=== PATIENT | female | born 1940 | race Caucasian/White ===

== ENCOUNTER 2021-02-19 01:15 | Observation (INO) ==
[2021-02-19] MEDS ORDERED: Furosemide 40 mg/4 ml IV VIAL IV SLOW PU ONE (01:35)
[2021-02-19 03:13] LABS: Hematocrit 27 % (35-47); Hemoglobin 8.4 g/dL (12.0-16.0); Mean Corpuscular HGB Conc 32 g/dL (31-36); Mean Corpuscular Hemoglobin 23 pg (27-31); Mean Corpuscular Volume 73 fL (80-97); Mean Platelet Volume 7.1 fL (7.4-10.4); Platelet Count 366 10^3/uL (150-450); Red Blood Count 3.64 10^6 /uL (3.70-4.87); Red Cell Distribution Width 15 % (10-15); White Blood Count 11.3 10^3/uL (3.5-10.8)
[2021-02-19 03:29] LABS: Anion Gap 7 mmol/L (2-11); Blood Urea Nitrogen 25 mg/dL (6-24); CO2 Carbon Dioxide 26 mmol/L (22-32); Calcium 9.2 mg/dL (8.6-10.3); Chloride 107 mmol/L (101-111); EGFR African American 65.5 (>60); EGFR Non-African American 54.1 (>60); Glucose 108 mg/dL (70-100); Magnesium 1.9 mg/dL (1.9-2.7); Potassium 3.8 mmol/L (3.5-5.0); Sodium 140 mmol/L (135-145)
[2021-02-19 03:35] LABS: Troponin I 0.04 ng/mL (<0.03)
[2021-02-19] MEDS ORDERED: Polyethylene Glycol 3350 17 GM PACKET PO PRN (05:48)
[2021-02-19] MEDS ORDERED: Senna TAB 8.6 mg TAB PO PRN (05:48)
[2021-02-19] MEDS: Furosemide 40 mg/4 ml IV VIAL IV SCH ×2 (09:11→17:18)
[2021-02-19] MEDS: Enoxaparin 40 MG/0.4 ML SYR SUBCUT SCH (09:12)
[2021-02-19 16:58] LABS: Troponin I 0.05 ng/mL (<0.03)
[2021-02-20 07:04] LABS: Troponin I 0.04 ng/mL (<0.03)
[2021-02-20 08:56] LABS: ABS Basophils 0.1 10^3/ul (0-0.2); ABS Eosinophils 0.3 10^3/ul (0-0.6); ABS Lymphocytes 2.3 10^3/ul (1.0-4.8); ABS Monocytes 0.6 10^3/ul (0-0.8); ABS Neutrophils 6.8 10^3/ul (1.5-7.7); Eosinophil % 2.6 %; Hematocrit 32 % (35-47); Hemoglobin 10.4 g/dL (12.0-16.0); Lymphocyte % 22.8 %; Mean Corpuscular HGB Conc 33 g/dL (31-36); Mean Corpuscular Hemoglobin 24 pg (27-31); Mean Corpuscular Volume 73 fL (80-97); Mean Platelet Volume 7.2 fL (7.4-10.4); Nucleated Red Blood Cells % 0.1; Platelet Count 461 10^3/uL (150-450); Red Blood Count 4.39 10^6 /uL (3.70-4.87); Red Cell Distribution Width 15 % (10-15)
[2021-02-20 09:02] LABS: Calcium 9.7 mg/dL (8.6-10.3); EGFR African American 42.5 (>60); EGFR Non-African American 35.1 (>60); Potassium 4.2 mmol/L (3.5-5.0)
[2021-02-20 09:28] LABS: Microcytosis 1+; Polychromasia 1+
[2021-02-20] MEDS: Furosemide 40 mg/4 ml IV VIAL IV SCH (09:41)
[2021-02-20] MEDS: Enoxaparin 40 MG/0.4 ML SYR SUBCUT SCH (09:41)
[2021-02-20 16:37] VITALS: BP 129/55
== END 2021-02-20 17:25 | disposition home or self-care (01) ==
LOC: ED 01:15 → MEDTELE 01:15 → ED 07:03
PROVIDERS: ADMIT Hospitalist; ATTEND Hospitalist

== ENCOUNTER 2022-03-07 00:10 | Inpatient (IN) ==
[2022-03-07] MEDS ORDERED: Albuterol HFA INHALER 8 gm MDI INH PRN (01:04)
[2022-03-07] MEDS ORDERED: Furosemide 40 mg/4 ml IV VIAL IV SLOW PU ONE (01:06)
[2022-03-07 01:28] LABS: Hematocrit 32 % (35-47); Hemoglobin 8.6 g/dL (12.0-16.0); Mean Corpuscular HGB Conc 27 g/dL (31-36); Mean Corpuscular Hemoglobin 23 pg (27-31); Mean Corpuscular Volume 82 fL (80-97); Platelet Count 535 10^3/uL (150-450); Red Blood Count 3.84 10^6 /uL (3.70-4.87); Red Cell Distribution Width 17 % (10-15); White Blood Count 22.3 10^3/uL (3.5-10.8)
[2022-03-07 01:42] LABS: Albumin 2.2 g/dL (3.2-5.2); Calcium 7.7 mg/dL (8.6-10.3); Sodium 137 mmol/L (135-145)
[2022-03-07 01:48] LABS: ALT 28 U/L (7-52); Albumin/Globulin Ratio 1.2 (1-3); Alkaline Phosphatase 779 U/L (35-149); Blood Urea Nitrogen 52 mg/dL (6-24); Globulin 1.9 g/dL (2-4); Glucose 92 mg/dL (70-100); Total Protein 4.1 g/dL (6.4-8.9); eGFR CKD-EPI 13.7 (>60)
[2022-03-07 01:51] LABS: Chloride 112 mmol/L (101-111)
[2022-03-07 01:53] LABS: Anion Gap 14 mmol/L (2-11); CO2 Carbon Dioxide 11 mmol/L (22-32)
[2022-03-07 03:00] LABS: Potassium Redraw 4.5 mmol/L (3.5-5.0)
[2022-03-07 03:14] LABS: Acanthocytes 1+; Anisocytosis 1+; Polychromasia 1+
[2022-03-07 03:15] LABS: Target Cells 1+; Toxic Granulation 1+
[2022-03-07 03:19] LABS: Dohle Bodies Present
[2022-03-07 03:24] LABS: ABS Basophils 0.1 10^3/ul (0-0.2); ABS Eosinophils 0.1 10^3/ul (0-0.6); ABS Lymphocytes 1.4 10^3/ul (1.0-4.8); ABS Monocytes 1.2 10^3/ul (0-0.8); ABS Neutrophils 19.6 10^3/ul (1.5-7.7); ABS Nucleated RBC 0.4 10^3/ul; Eosinophil % 0.4 %; Lymphocyte % 6.5 %
[2022-03-07 03:53] LABS: RBC Morphology Normal (Normal)
[2022-03-07] MEDS: Ondansetron 4 mg VIAL 2 MG/ML 2 ml VIAL IV PRN ×2 (08:26→13:08)
[2022-03-07] MEDS: DULoxetine DR 60 mg CAP PO SCH (09:29)
[2022-03-07 11:44] LABS: Calcium 8.2 mg/dL (8.6-10.3); Potassium 4.8 mmol/L (3.5-5.0); eGFR CKD-EPI 12.4 (>60)
[2022-03-07] MEDS ORDERED: Furosemide 100 mg/10 ml IV VIAL IV ONE (15:00)
[2022-03-07 17:29] LABS: Urine Osmo 331 mOsm/kg (150-1150)
[2022-03-07 17:38] LABS: Urine Creatinine Concentration 109.67 mg/dL
[2022-03-07 17:46] LABS: Urine Appearance Clear; Urine Bilirubin 1+ (Small) (Negative); Urine Blood Negative (Negative); Urine Color Yellow; Urine Glucose Negative (Negative); Urine Ketones Negative (Negative); Urine Nitrite Negative (Negative); Urine Protein 2+ (100 mg/dL) (Negative); Urine Specific Gravity 1.025 (1.005-1.030); Urine Urobilinogen 0.2 (Negative) (Negative)
[2022-03-07 17:53] LABS: Urine Bacteria 1+ (Absent); Urine Red Blood Cell 1+(3-5/hpf) (Absent); Urine Squamous Epithelial Cell Present (Absent); Urine White Blood Cell 1+(6-10/hpf) (Absent)
[2022-03-07 19:01] LABS: Osmolality Serum 304 mOsm/kg (275-295)
[2022-03-08] MEDS: Ondansetron 4 mg VIAL 2 MG/ML 2 ml VIAL IV PRN ×4 (01:02→20:23)
[2022-03-08 01:39] LABS: Calcium 8.2 mg/dL (8.6-10.3); Magnesium 2.1 mg/dL (1.9-2.7); Potassium 4.9 mmol/L (3.5-5.0)
[2022-03-08 01:45] LABS: eGFR CKD-EPI 10.6 (>60)
[2022-03-08] MEDS ORDERED: Bumetanide IV 0.25 MG/ML 4 ml VIAL (1 mg) SLOW PUSH ONE (02:53)
[2022-03-08] MEDS ORDERED: Lactated Ringers 1000 ml BAG 1,000 ML IV SCH (08:00)
[2022-03-08] MEDS: DULoxetine DR 60 mg CAP PO SCH (08:19)
[2022-03-08 13:47] LABS: Calcium 7.9 mg/dL (8.6-10.3); Potassium 4.8 mmol/L (3.5-5.0); eGFR CKD-EPI 9.9 (>60)
[2022-03-08 14:44] LABS: Hematocrit 29 % (35-47); Hemoglobin 8.3 g/dL (12.0-16.0); Mean Corpuscular HGB Conc 29 g/dL (31-36); Mean Corpuscular Hemoglobin 23 pg (27-31); Mean Corpuscular Volume 77 fL (80-97); Mean Platelet Volume 7.8 fL (7.4-10.4); Platelet Count 707 10^3/uL (150-450); Red Cell Distribution Width 16 % (10-15); White Blood Count 28.7 10^3/uL (3.5-10.8)
[2022-03-08] MEDS: Lactated Ringers 1000 ml BAG 1,000 ML IV SCH (15:41)
[2022-03-08 17:02] LABS: Albumin 2.1 g/dL (3.2-5.2); Albumin/Globulin Ratio 1.3 (1-3); Direct Bilirubin 0.2 mg/dL (0.03-0.18); Globulin 1.6 g/dL (2-4); Indirect Bilirubin 0.3 mg/dL (0.3-1.0); Total Bilirubin 0.5 mg/dL (0.2-1.0); Total Protein 3.7 g/dL (6.4-8.9)
[2022-03-08 21:21] LABS: Toxic Granulation 1+
[2022-03-08 21:22] LABS: Burr Cells 1+
[2022-03-08 21:23] LABS: ABS Basophils 0.2 10^3/ul (0-0.2); ABS Monocytes 0.1 10^3/ul (0-0.8); ABS Neutrophils 27.3 10^3/ul (1.5-7.7); ABS Nucleated RBC 0.5 10^3/ul; Anisocytosis 1+; Eosinophil % 0.2 %; Lymphocyte % 3.7 %; Microcytosis 1+; Nucleated Red Blood Cells % 1.8; Polychromasia 1+
[2022-03-09] MEDS: Ondansetron 4 mg VIAL 2 MG/ML 2 ml VIAL IV PRN (05:34)
[2022-03-09] MEDS: Lactated Ringers 1000 ml BAG 1,000 ML IV SCH (05:35)
[2022-03-09 06:49] LABS: Hematocrit 28 % (35-47); Hemoglobin 8.7 g/dL (12.0-16.0); Mean Corpuscular HGB Conc 31 g/dL (31-36); Mean Corpuscular Hemoglobin 23 pg (27-31); Mean Corpuscular Volume 73 fL (80-97); Mean Platelet Volume 6.9 fL (7.4-10.4); Platelet Count 737 10^3/uL (150-450); Red Blood Count 3.85 10^6 /uL (3.70-4.87); Red Cell Distribution Width 16 % (10-15); White Blood Count 29.1 10^3/uL (3.5-10.8)
[2022-03-09 07:01] LABS: Albumin 2.1 g/dL (3.2-5.2); Albumin/Globulin Ratio 1.2 (1-3); Calcium 8.1 mg/dL (8.6-10.3); Globulin 1.8 g/dL (2-4); Magnesium 2.1 mg/dL (1.9-2.7); Phosphorus 6.7 mg/dL (2.5-5.0); Potassium 4.4 mmol/L (3.5-5.0); Total Bilirubin 0.5 mg/dL (0.2-1.0); Total Protein 3.9 g/dL (6.4-8.9); eGFR CKD-EPI 9.1 (>60)
[2022-03-09 07:23] LABS: Anisocytosis 1+; Microcytosis 2+
[2022-03-09 07:26] LABS: ABS Eosinophils 0.1 10^3/ul (0-0.6); ABS Lymphocytes 2.5 10^3/ul (1.0-4.8); ABS Monocytes 1.4 10^3/ul (0-0.8); ABS Neutrophils 25.2 10^3/ul (1.5-7.7); ABS Nucleated RBC 0.3 10^3/ul; Eosinophil % 0.2 %; Lymphocyte % 8.5 %; Nucleated Red Blood Cells % 1.1; Polychromasia 1+
[2022-03-09] MEDS: DULoxetine DR 60 mg CAP PO SCH (08:46)
[2022-03-09] MEDS: Heparin 5000 UNITS/ML 1 mL VIAL SUBCUT SCH (21:34)
[2022-03-10 05:44] LABS: Hematocrit 30 % (35-47); Hemoglobin 8.8 g/dL (12.0-16.0); Mean Corpuscular HGB Conc 30 g/dL (31-36); Mean Corpuscular Hemoglobin 22 pg (27-31); Mean Corpuscular Volume 73 fL (80-97); Mean Platelet Volume 7.1 fL (7.4-10.4); Platelet Count 709 10^3/uL (150-450); Red Blood Count 4.05 10^6 /uL (3.70-4.87); Red Cell Distribution Width 16 % (10-15)
[2022-03-10 05:45] LABS: Albumin 2.1 g/dL (3.2-5.2); Albumin/Globulin Ratio 1.2 (1-3); Globulin 1.7 g/dL (2-4); Total Bilirubin 0.5 mg/dL (0.2-1.0); Total Protein 3.8 g/dL (6.4-8.9); eGFR CKD-EPI 8.6 (>60)
[2022-03-10 06:21] LABS: Anisocytosis 1+; Hypochromasia 1+; Microcytosis 2+; Polychromasia 1+
[2022-03-10 06:22] LABS: ABS Basophils 0.1 10^3/ul (0-0.2); ABS Eosinophils 0.1 10^3/ul (0-0.6); ABS Lymphocytes 2.5 10^3/ul (1.0-4.8); ABS Monocytes 1.2 10^3/ul (0-0.8); ABS Neutrophils 26.4 10^3/ul (1.5-7.7); ABS Nucleated RBC 0.9 10^3/ul; Eosinophil % 0.2 %; Lymphocyte % 8.4 %
[2022-03-10 06:31] LABS: White Blood Count 27.2 10^3/uL (3.5-10.8)
[2022-03-10] MEDS: Heparin 5000 UNITS/ML 1 mL VIAL SUBCUT SCH ×2 (08:12→20:03)
[2022-03-10] MEDS: DULoxetine DR 60 mg CAP PO SCH (08:12)
[2022-03-10] MEDS ORDERED: Bumetanide IV 0.25 MG/ML 4 ml VIAL (1 mg) SLOW PUSH ONE ×2 (09:00→16:30)
[2022-03-10] MEDS ORDERED: Albumin Human 5% 12.5 GM/250 ML BTL IV ONE (16:30)
[2022-03-11 05:52] LABS: ABS Lymphocytes 2.9 10^3/ul (1.0-4.8); ABS Monocytes 1.2 10^3/ul (0-0.8); ABS Neutrophils 28.6 10^3/ul (1.5-7.7); ABS Nucleated RBC 0.2 10^3/ul; Eosinophil % 0.1 %; Hematocrit 27 % (35-47); Hemoglobin 8.1 g/dL (12.0-16.0); Lymphocyte % 8.9 %; Mean Corpuscular HGB Conc 30 g/dL (31-36); Mean Corpuscular Hemoglobin 23 pg (27-31); Mean Corpuscular Volume 74 fL (80-97); Mean Platelet Volume 6.8 fL (7.4-10.4); Nucleated Red Blood Cells % 0.7; Platelet Count 593 10^3/uL (150-450); Red Blood Count 3.61 10^6 /uL (3.70-4.87); Red Cell Distribution Width 16 % (10-15); White Blood Count 32.7 10^3/uL (3.5-10.8)
[2022-03-11 06:16] LABS: Calcium 8.1 mg/dL (8.6-10.3); Potassium 4.1 mmol/L (3.5-5.0); eGFR CKD-EPI 8.2 (>60)
[2022-03-11] MEDS ORDERED: NS 0.9% 1000 ml BAG 1,000 ML IV ONE (07:55)
[2022-03-11] MEDS ORDERED: Albumin Human 5% 12.5 GM/250 ML BTL IV ONE (08:03)
[2022-03-11] MEDS: DULoxetine DR 60 mg CAP PO SCH (09:11)
[2022-03-11] MEDS: Heparin 5000 UNITS/ML 1 mL VIAL SUBCUT SCH ×2 (09:11→20:37)
[2022-03-11] MEDS ORDERED: Vancomycin- *ENEMA* PR 500MG PR ONE (11:31)
[2022-03-11 12:12] LABS: C Reactive Protein 51.65 mg/L (<8.01)
[2022-03-11 13:08] LABS: Complement C3 70 mg/dL (75 - 175)
[2022-03-11 13:54] LABS: Kappa Free Light Chain 7.33 mg/dL; Lambda Free Light Chain, S 4.99 mg/dL
[2022-03-11 14:04] LABS: Albumin 2.3 g/dL (3.2-5.2)
[2022-03-11 14:36] LABS: INR 1.59 (0.89-1.11)
[2022-03-11 15:49] LABS: Body Fluid Appearance Clear; Body Fluid Color Yellow; Body Fluid Source Peritonial Fluid
[2022-03-11 16:12] LABS: C-ANCA Negative (Negative); P-ANCA Negative (Negative)
[2022-03-11] MEDS: metroNIDAZOLE IV 500 MG/100ML 500 MG/100 ML BAG IVPB SCH (17:23)
[2022-03-11 19:56] LABS: Body Fluid WBC 749 /mcL
[2022-03-11 23:07] LABS: Body Fluid Mono 25 %; Body Fluid Other Cells 1; Body Fluid Total Cells Counted 200
[2022-03-12] MEDS: metroNIDAZOLE IV 500 MG/100ML 500 MG/100 ML BAG IVPB SCH ×3 (01:46→18:11)
[2022-03-12 06:19] LABS: Hematocrit 27 % (35-47); Hemoglobin 7.9 g/dL (12.0-16.0); Mean Corpuscular HGB Conc 29 g/dL (31-36); Mean Corpuscular Hemoglobin 22 pg (27-31); Mean Corpuscular Volume 75 fL (80-97); Mean Platelet Volume 7.1 fL (7.4-10.4); Platelet Count 541 10^3/uL (150-450); Red Blood Count 3.57 10^6 /uL (3.70-4.87); Red Cell Distribution Width 16 % (10-15); White Blood Count 37.1 10^3/uL (3.5-10.8)
[2022-03-12 06:23] LABS: Albumin 2.4 g/dL (3.2-5.2); Total Bilirubin 0.5 mg/dL (0.2-1.0)
[2022-03-12 06:29] LABS: Albumin/Globulin Ratio 1.5 (1-3); Globulin 1.6 g/dL (2-4); eGFR CKD-EPI 8.7 (>60)
[2022-03-12 08:23] LABS: ABS Basophils 0.2 10^3/ul (0-0.2); ABS Eosinophils 0.1 10^3/ul (0-0.6); ABS Lymphocytes 2.1 10^3/ul (1.0-4.8); ABS Neutrophils 33.7 10^3/ul (1.5-7.7); ABS Nucleated RBC 0.3 10^3/ul; Anisocytosis 1+; Eosinophil % 0.3 %; Lymphocyte % 5.6 %; Microcytosis 1+; Nucleated Red Blood Cells % 0.8; Polychromasia 1+
[2022-03-12 08:50] LABS: Albumin 1.8 g/dL (3.4-4.7); Albumin/Globulin Ratio 0.89; Gamma Globulin 0.4 g/dL (0.6-1.6); Total Protein(PEP) 3.8 g/dL (6.3 - 7.9)
[2022-03-12] MEDS: Sodium Bicarb 650 mg (ANTACID) TAB PO SCH ×2 (09:26→12:54)
[2022-03-12] MEDS ORDERED: Albumin Human 5% 12.5 GM/250 ML BTL IV ONE (09:26)
[2022-03-12] MEDS: DULoxetine DR 60 mg CAP PO SCH (09:26)
[2022-03-12] MEDS: Heparin 5000 UNITS/ML 1 mL VIAL SUBCUT SCH ×2 (09:35→21:36)
[2022-03-12 09:52] LABS: Magnesium 2.1 mg/dL (1.9-2.7)
[2022-03-12 09:58] LABS: Phosphorus 7.1 mg/dL (2.5-5.0)
[2022-03-12] MEDS ORDERED: cefTRIAXone 2 gm/50 mL D5W 2 GM/50 ML BAG IV SCH (10:00)
[2022-03-12 10:20] LABS: Venous Bicarbonate HCO3 14.4 mmol/L (24-28)
[2022-03-12 11:24] LABS: HIV 4th Generation Nonreactive (Nonreactive)
[2022-03-12 12:58] LABS: ALP Liver 1% 51.4 % (27.8-76.3); ALP Liver 2 605.7 IU/L (0.0-5.8); ALP Liver 2% 44.6 % (0.0-8.0); ALP Placental Not Present; Alkaline Phosphate 1358 U/L (35 - 104)
[2022-03-12 13:57] LABS: Calcium 7.9 mg/dL (8.6-10.3); Potassium 3.7 mmol/L (3.5-5.0); eGFR CKD-EPI 8.8 (>60)
[2022-03-12 15:02] LABS: Venous Bicarbonate HCO3 15.3 mmol/L (24-28)
[2022-03-12] MEDS ORDERED: Sodium Bicarbonate 8.4% VIAL 1 MEQ/ML 50 ml VIAL (50 meq) IV ONE (15:40)
[2022-03-12] MEDS ORDERED: Sodium Bicarb 650 mg (ANTACID) TAB PO SCH (16:00)
[2022-03-12] MEDS ORDERED: HYDROmorphone 0.5 MG/0.5 ML SYRINGE ONE (17:33)
[2022-03-12] MEDS: HYDROmorphone 0.5 MG/0.5 ML SYRINGE IV SLOW PU PRN ×2 (17:36→23:11)
[2022-03-12 20:19] LABS: PCO2 Arterial 35 mmHg (35-45); PO2 Arterial 91 mmHg (80-100)
[2022-03-12] MEDS ORDERED: Metoprolol Tartrate 5 mg VIAL 5 ml VIAL (1 mg/ml) IV ONE ×2 (20:47→23:50)
[2022-03-12] MEDS ORDERED: Pantoprazole VIAL 40 MG VIAL IV SCH (21:00)
[2022-03-12] MEDS ORDERED: Sodium Bicarb 8.4% Vial 50 ML 150 MEQ in D5W 1000 ml BAG 850 ML IV SCH ×2 (21:00→21:30)
[2022-03-12] MEDS ORDERED: Cefepime 1 GM in Dextrose 1 GM/50 ML BAG IV SCH (21:00)
[2022-03-12 21:13] LABS: Hematocrit 31 % (35-47); Hemoglobin 9.4 g/dL (12.0-16.0); Mean Corpuscular HGB Conc 31 g/dL (31-36); Mean Corpuscular Hemoglobin 23 pg (27-31); Mean Corpuscular Volume 74 fL (80-97); Mean Platelet Volume 7.1 fL (7.4-10.4); Platelet Count 669 10^3/uL (150-450); Red Blood Count 4.17 10^6 /uL (3.70-4.87); Red Cell Distribution Width 16 % (10-15); White Blood Count 35.6 10^3/uL (3.5-10.8)
[2022-03-12 21:54] LABS: Albumin 2.5 g/dL (3.2-5.2); Albumin/Globulin Ratio 1.6 (1-3); Calcium 7.8 mg/dL (8.6-10.3); Globulin 1.6 g/dL (2-4); Total Bilirubin 0.5 mg/dL (0.2-1.0); Total Protein 4.1 g/dL (6.4-8.9); eGFR CKD-EPI 8.9 (>60)
[2022-03-12 21:59] LABS: ABS Lymphocytes 0.9 10^3/ul (1.0-4.8); ABS Monocytes 0.2 10^3/ul (0-0.8); ABS Neutrophils 34.4 10^3/ul (1.5-7.7); ABS Nucleated RBC 0.8 10^3/ul; Lymphocyte % 2.5 %; Nucleated Red Blood Cells % 2.2
[2022-03-13] MEDS: Vancomycin- *ENEMA* PR 500MG PR SCH ×2 (00:41→05:00)
[2022-03-13] MEDS ORDERED: Morphine 2 MG/ML SYRINGE IV ONE (00:56)
[2022-03-13] MEDS ORDERED: Metoprolol Tartrate 5 mg VIAL 5 ml VIAL (1 mg/ml) IV ONE (01:29)
[2022-03-13] MEDS: metroNIDAZOLE IV 500 MG/100ML 500 MG/100 ML BAG IVPB SCH (01:33)
[2022-03-13] MEDS ORDERED: Metoprolol Tartrate 5 mg VIAL 5 ml VIAL (1 mg/ml) ONE (01:47)
[2022-03-13] MEDS ORDERED: Acetaminophen IV 1 GM/100ML 1,000 MG/100 ML BAG IV PRN (02:07)
[2022-03-13] MEDS ORDERED: Digoxin IV 0.5 MG/2 ML AMP (0.25 MG/ML) IV SLOW PU ONE (02:25)
[2022-03-13] MEDS: HYDROmorphone 0.5 MG/0.5 ML SYRINGE IV SLOW PU PRN (03:10)
[2022-03-13] MEDS ORDERED: PHENYLEPHRINE DRIP IVPREMIX 50 MG/250 ML BAG IV ONE (04:52)
[2022-03-13] MEDS ORDERED: Sodium Bicarb 8.4% Vial 50 ML 150 MEQ in D5W 1000 ml BAG 850 ML IV SCH (05:09)
[2022-03-13] MEDS ORDERED: Amiodarone 150 mg IVPREMIX 150 MG/100 ML BAG IV ONE ×2 (05:16→05:34)
[2022-03-13] MEDS ORDERED: .Amiodarone 24HR ONLY IV Protocol Order Note IV ONE (05:16)
[2022-03-13] MEDS ORDERED: Amiodarone 360 MG IVPREMIX 360 MG/200 ML BAG IV SCH ×2 (05:30→11:30)
[2022-03-13 05:54] LABS: INR 2.29 (0.89-1.11)
[2022-03-13 05:57] LABS: ABS Lymphocytes 2.2 10^3/ul (1.0-4.8); ABS Monocytes 0.3 10^3/ul (0-0.8); ABS Neutrophils 37.7 10^3/ul (1.5-7.7); ABS Nucleated RBC 1.6 10^3/ul; Eosinophil % 0.1 %; Hematocrit 31 % (35-47); Hemoglobin 9.1 g/dL (12.0-16.0); Lymphocyte % 5.5 %; Mean Corpuscular HGB Conc 29 g/dL (31-36); Mean Corpuscular Hemoglobin 23 pg (27-31); Mean Corpuscular Volume 77 fL (80-97); Mean Platelet Volume 7.6 fL (7.4-10.4); Nucleated Red Blood Cells % 3.9; Platelet Count 650 10^3/uL (150-450); Red Blood Count 3.99 10^6 /uL (3.70-4.87); Red Cell Distribution Width 17 % (10-15); White Blood Count 40.2 10^3/uL (3.5-10.8)
[2022-03-13 06:06] LABS: Albumin 2.5 g/dL (3.2-5.2); Calcium 7.6 mg/dL (8.6-10.3); Potassium 4.9 mmol/L (3.5-5.0); Total Bilirubin 0.8 mg/dL (0.2-1.0)
[2022-03-13 06:12] LABS: Albumin/Globulin Ratio 1.4 (1-3); Globulin 1.8 g/dL (2-4); Total Protein 4.3 g/dL (6.4-8.9); eGFR CKD-EPI 8.1 (>60)
[2022-03-13] MEDS ORDERED: Sodium Bicarbonate 8.4% SYR 50 ml SYRINGE ONE (06:12)
[2022-03-13] MEDS ORDERED: Lorazepam PYXIS KEY PRN (06:34)
[2022-03-13] MEDS ORDERED: Atropine 1% (ORAL/SL) 15 ML BTL SL PRN (06:34)
[2022-03-13] MEDS ORDERED: LORazepam 2 mg VIAL 1 ml IV PUSH PRN (06:34)
[2022-03-13] MEDS ORDERED: Morphine 4 MG/ML VIAL (1 ml) ONE (06:38)
[2022-03-13 07:38] VITALS: BP 103/72
[2022-03-13] MEDS ORDERED: diazePAM INJ CARPUJECT 5 MG/ML SYRINGE IV ONE (07:51)
[2022-03-13] MEDS ORDERED: diazePAM INJ CARPUJECT 5 MG/ML SYRINGE ONE (07:53)
[2022-03-13] MEDS ORDERED: diazePAM INJ CARPUJECT 5 MG/ML SYRINGE IV PRN (10:15)
[2022-03-13 14:53] LABS: Glucose, BF 85 mg/dL
[2022-03-13 15:47] LABS: Albumin, BF 1.5 g/dL; Fluid Type, Albumin PERITONEAL FLUID; Fluid Type, Protein, Total PERITONEAL FLUID; Total Protein, BF 2.3 g/dL
== END 2022-03-13 10:31 | disposition expired | DRG 371 ==
LOC: SUATTDRO 00:10 → SSU 00:10 → ICU 03-12 20:03
PROVIDERS: ADMIT Student in an Organized Health Care Education/Training Program; ATTEND Internal Medicine